=== PATIENT | female | born 1975 | race Caucasian/White ===

== ENCOUNTER 2021-02-14 | Emergency (ER) | payer SELFPAY ==
[~2021-02-14] VITALS: Ht 157.5 cm; Wt 89.0 kg
[2021-02-14 00:04] VITALS: BP 127/42
[2021-02-14] MEDS ORDERED: HYDROCODONE/ACETAMINOPHEN 5/325MG TABLET PO ONE (00:15)
[2021-02-14] MEDS ORDERED: NAPR-681 MT ×2 (02:34)
== END 2021-02-14 04:40 | disposition home or self-care (01) ==
LOC: ER
DX: S70.01XA Contusion of right hip, initial encounter (principal); Z98.890 Other specified postprocedural states; W01.0XXA Fall on same level from slipping, tripping and stumbling without subsequent striking against object, initial encounter; Y93.89 Activity, other specified; Y92.89 Other specified places as the place of occurrence of the external cause; Y99.8 Other external cause status
CPT/HCPCS: 73502; 73552; 81025; 99284; J7042

== ENCOUNTER 2021-02-19 05:37 | Emergency (ER) | payer SELFPAY ==
[~2021-02-19] VITALS: Ht 152.4 cm; Wt 90.7 kg
[~2021-02-19 05:37] MED LIST: NAPR-681 MT
[2021-02-19] MEDS ORDERED: CYCL25PO15 MT (06:58)
[2021-02-19] MEDS ORDERED: CYCLOBENZAPRINE 10MG TABLET PO ONE (07:00)
[2021-02-19] MEDS ORDERED: LIDOCAINE 5% PATCH TOP SCH (07:00)
[2021-02-19] MEDS ORDERED: KETOROLAC 30MG/ML VIAL IM ONE (07:00)
[2021-02-19] MEDS ORDERED: CYCL10TA7 MT ×2 (07:04→07:05)
[2021-02-19 07:16] VITALS: BP 144/51
== END 2021-02-19 07:28 | disposition home or self-care (01) ==
LOC: ER 05:37
DX: M25.551 Pain in right hip (principal); M79.661 Pain in right lower leg
CPT/HCPCS: 81025; 96372; 99283; J1885